=== PATIENT | male | born 1995 | race African-American/Black ===

== ENCOUNTER 2019-05-16 08:48 | Inpatient (IN) | payer MEDICAID, SELFPAY ==
[~2019-05-16] VITALS: Ht 170.2 cm; Wt 68.9 kg
[2019-05-16 08:48] VITALS: BP 89/60
[~2019-05-16 08:48] MED LIST: A-HYDROCORT100 MG IV
[2019-05-16] MEDS ORDERED: Capsaicin 0.075% Cream TOPIC ONE (09:30)
[2019-05-16 09:34] LABS: BASOPHILS % (AUTO) 0.8 % (0.0-2.0); EOSINOPHILS % (AUTO) 1.3 % (0.0-3.0); HEMATOCRIT 45.2 % (42.0-52.0); HEMOGLOBIN 15.2 G/DL (14.2-18.0); LYMPHOCYTES % (AUTO) 22.5 % (20.0-45.0); MEAN CORPUSCULAR VOLUME 86 FL (80-99); MONOCYTES % (AUTO) 8.2 % (1.0-10.0); NEUTROPHILS % (AUTO) 67.3 % (45.0-75.0); PLATELET COUNT 237 K/UL (150-450); RED BLOOD COUNT 5.28 M/UL (4.70-6.10); WHITE BLOOD COUNT 7.4 K/UL (4.8-10.8)
[2019-05-16 09:35] LABS: ANION GAP 13 mmol/L (5-15); BLOOD UREA NITROGEN 11 mg/dL (7-18); CALCIUM 9.4 MG/DL (8.5-10.1); CARBON DIOXIDE 22 MMOL/L (21-32); CHLORIDE 101 MMOL/L (98-107); CREATININE 0.7 MG/DL (0.55-1.30); SODIUM 136 MMOL/L (136-145)
--- NOTE | 2019-05-16 09:40 | NUR ---
ED Nurse Note: MIREILLE PT IN CUSTODY SEE TRIAGE NOTE. PT C/O VOMITTING BLOOD ERMD EVAL DONE BLOOD SENT PT MEDICATED UNABLE TO PROVIDE URINE AT THIS TIME ERMD AWARE. PT ON MONITOR .
[2019-05-16 09:45] VITALS: BP 107/56
[2019-05-16 09:50] LABS: ALANINE AMINOTRANSFERASE 12 U/L (12-78); ALBUMIN 4.3 G/DL (3.4-5.0); ALBUMIN/GLOBULIN RATIO 1.2 (1.0-2.7); ALKALINE PHOSPHATASE 52 U/L (46-116); ASPARTATE AMINO TRANSFERASE 28 U/L (15-37); BILIRUBIN,DIRECT 0.2 MG/DL (0.0-0.3); BILIRUBIN,TOTAL 1.4 MG/DL (0.2-1.0)
--- NOTE | 2019-05-16 10:00 | Emergency Room Report ---
History of Present Illness General Chief Complaint: Nausea, Vomiting, and Diarrhea Source: Patient Present Illness HPI This patient presents in custody after being in residential for 3 days. 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 He states he did not know that he could obtain this medication while incarcerated. He states that this morning he developed nausea and vomiting. He states that this is typical for him when he is not taking his hydrocortisone. He states he takes 500 mg 3 times a day. He did have an episode of diarrhea and states he has been fatigued. He denies fever or chills. He denies abdominal pain. He denies dysuria or hematuria. He denies headache or neck pain. He denies chest pain or shortness of breath. He denies cough or congestion. He has no other complaints. Allergies: Coded Allergies: No Known Allergies (Unverified , 05/16/19) Patient History Past Medical History: see triage record, other - Bentley's disease Social History: Reports: alcohol use, drug use; Denies: smoking Reviewed Nursing Documentation: PMH: Agreed; PSxH: Agreed Nursing Documentation-PMH Past Medical History: No History, Except For Hx Cardiac Problems: No - ADDISONS Review of Systems All Other Systems: negative except mentioned in HPI Physical Exam Vital Signs Date Time Temp Pulse Resp B/P (MAP) Pulse Ox O2 Delivery O2 Flow Rate FiO2 05/16/19 08:40 97.9 05/16/19 08:40 56 16 89/60 (70) 99 Room Air Sp02 EP Interpretation: reviewed, normal General Appearance: no apparent distress, alert, GCS 15, non-toxic Head: normocephalic, atraumatic Eyes: bilateral eye normal inspection, bilateral eye PERRL ENT: hearing grossly normal, normal pharynx, no angioedema, normal voice Neck: full range of motion, supple/symm/no masses Respiratory: chest non-tender, lungs clear, normal breath sounds, no respiratory distress, no retraction, no accessory muscle use, speaking full sentences Cardiovascular #1: no edema, bradycardia Gastrointestinal: normal bowel sounds, non tender, soft, non-distended, no guarding, no rebound Rectal: deferred Musculoskeletal: back normal, gait/station normal, normal range of motion, non- tender Neurologic: alert, oriented x3, responsive, motor strength/tone normal, sensory intact, speech normal Psychiatric: judgement/insight normal, memory normal, mood/affect normal, no suicidal/homicidal ideation Skin: no rash, normal color Medical Decision Making Diagnostic Impression: Primary Impression: Addisonian crisis Additional Impression: Terrence's disease ER Course This patient presents with an Bentley's crisis. He was hypotensive, bradycardic , hypoglycemic. He was also vomiting repeatedly despite Zofran. I did attempt to give food by mouth but the patient immediately vomited after trying to eat. He was unable to tolerate oral hydrocortisone. He was given IV hydrocortisone, aggressive IV fluids and admitted to the ICU stepdown for concern of rapid decompensation secondary to Terrence's crisis. This patient is critically ill. This patient required complex medical decision- making, aggressive intervention, extensive laboratory workup and monitoring. Critical care time: 40 minutes. Laboratory Tests Test 05/16/19 09:10 White Blood Count 7.4 K/UL (4.8-10.8) Red Blood Count 5.28 M/UL (4.70-6.10) Hemoglobin 15.2 G/DL (14.2-18.0) Hematocrit 45.2 % (42.0-52.0) Mean Corpuscular Volume 86 FL (80-99) Mean Corpuscular Hemoglobin 28.8 PG (27.0-31.0) Mean Corpuscular Hemoglobin Concent 33.6 G/DL (32.0-36.0) Red Cell Distribution Width 11.0 % (11.6-14.8) L Platelet Count 237 K/UL (150-450) Mean Platelet Volume 7.3 FL (6.5-10.1) Neutrophils (%) (Auto) 67.3 % (45.0-75.0) Lymphocytes (%) (Auto) 22.5 % (20.0-45.0) Monocytes (%) (Auto) 8.2 % (1.0-10.0) Eosinophils (%) (Auto) 1.3 % (0.0-3.0) Basophils (%) (Auto) 0.8 % (0.0-2.0) Sodium Level 136 MMOL/L (136-145) Potassium Level 4.0 MMOL/L (3.5-5.1) Chloride Level 101 MMOL/L (98-107) Carbon Dioxide Level 22 MMOL/L (21-32) Anion Gap 13 mmol/L (5-15) Blood Urea Nitrogen 11 mg/dL (7-18) Creatinine 0.7 MG/DL (0.55-1.30) Estimate Glomerular Filtration Rate > 60 mL/min (>60) Glucose Level 58 MG/DL (74-106) L Calcium Level 9.4 MG/DL (8.5-10.1) Total Bilirubin 1.4 MG/DL (0.2-1.0) H Direct Bilirubin 0.2 MG/DL (0.0-0.3) Aspartate Amino Transferase (AST) 28 U/L (15-37) Alanine Aminotransferase (ALT) 12 U/L (12-78) Alkaline Phosphatase 52 U/L (46-116) Total Protein 8.0 G/DL (6.4-8.2) Albumin 4.3 G/DL (3.4-5.0) Globulin 3.7 g/dL Albumin/Globulin Ratio 1.2 (1.0-2.7) Lipase 114 U/L (73-393) EKG Diagnostic Results Rate: bradycardiac Rhythm: other - S.bradycardia ST Segments: no acute changes Rhythm Strip Diag. Results EP Interpretation: yes Rate: 50's Rhythm: no PVC's, no ectopy, other - S.bradycardia Last Vital Signs Date Time Temp Pulse Resp B/P (MAP) Pulse Ox O2 Delivery O2 Flow Rate FiO2 05/16/19 09:45 97.9 60 16 107/56 100 Room Air Status: improved Disposition: ADMITTED INPATIENT Condition: Critical Giulia Rose DO May 16, 2019 10:00
--- NOTE | 2019-05-16 10:31 | NUR ---
ED Nurse Note: pt vomitted sandwich and juiceermd informed verbal order to hold off on cortel tab.
[2019-05-16] MEDS ORDERED: Hydrocortisone 100mg Inj IV ONE (10:45)
[2019-05-16 12:23] VITALS: BP 99/58
--- NOTE | 2019-05-16 12:39 | NUR ---
ED Nurse Note: mrsa vre swabs done belongings list done vss pt still unable to provide urine ermd aware.
[2019-05-16 13:30] VITALS: BP 122/54
--- NOTE | 2019-05-16 13:30 | NUR ---
NURSE NOTES: Pt brought up from ER via gurney, awake/alert, breathing easily on room air, denies SOB and denies pain at this time. Vital signs stable with SR @ 58 on monitor. Pt able to easily ambulate to the bed with steady gait, moving all extremities well. IV access left hand 20 ga, flushed with 10 ml NS and locked. Abdomen soft/supple/nontender no nausea/vom/diarr. Pt is in custody of [facility] Deputy Alexis Randall at bedside, pt right hand handcuffed to side rail of the bed good distal function in right hand. Urinal provided. Bed left in low position, side rails up x 2 and call light left near pt's hand,
[2019-05-16 16:00] VITALS: BP 125/45
--- NOTE | 2019-05-16 19:10 | NUR ---
HAND-OFF: Deputy Tinoco at bedside, pt breathing easily on room air, Vital signs stable. Pt has no complaints. Report given to Gregorio Brunson RN.
--- NOTE | 2019-05-16 19:11 | NUR ---
NURSE NOTES: Received pt from Cali COSBY. AAO X4 VSS with deputy at bedside. Pt shows no signs of acute distress.
[2019-05-16 21:00] VITALS: BP 108/53
[2019-05-16] MEDS ORDERED: Hydrocortisone 100mg Inj IV SCH ×2 (21:00)
[2019-05-16] MEDS: Hydrocortisone 100mg Inj IV SCH (21:11)
[2019-05-17] VITALS (8 sets, daily range): BP systolic 97–125; BP diastolic 41–61
--- NOTE | 2019-05-17 07:15 | NUR ---
HAND-OFF: Report given to Cali COSBY.
--- NOTE | 2019-05-17 07:58 | NUR ---
NURSE NOTES: Pt awake/alert, in bed eating breakfast, breathing easily on room air, denies SOB and denies pain at this time. Vital signs stable with SR @ 55 on monitor. IV access left forearm 20 ga, with 10 @ 125 ml/hr. Pt is in custody of [place] Oanh Christensen, Alanson Frances at bedside, pt right hand handcuffed to side rail of the bed good distal function in right hand. Urinal provided. Bed left in low position, side rails up x 2 and call light left near pt's hand,
[2019-05-17] MEDS: Hydrocortisone 100mg Inj IV SCH (09:01)
--- NOTE | 2019-05-17 15:30 | NUR ---
NURSE NOTES: [place] Randall on duty, Deputy Jaimes has left the floor
--- NOTE | 2019-05-17 17:00 | NUR ---
HAND-OFF: Transfer pt via wheelchair to [address] [place] [address] with belongings, chart and IV pole, Awake/alert breathing easily on room air, with [place] Randall at bedside. Report given to ALEA Leavitt.
--- NOTE | 2019-05-17 17:20 | NUR ---
NURSE NOTES: Patient transferred into room 419 bed 1,patient is alert and oriented.IV left forearm intact , will resume IV fluids as ordered.Patient accompany by [place] Randall at bedside. Call light within reach.
--- NOTE | 2019-05-17 19:00 | History and Physical Report ---
DATE OF ADMISSION: 05/16/2019 REASON FOR ADMISSION: Hypotension. HISTORY OF PRESENT ILLNESS: This is a 24-year-old male, under arrest now for cardiac events, has a history of Bland's disease. He has been incarcerated for three days and has not had his hydrocortisone during that period. This morning, he developed nausea and vomiting and had an episode of diarrhea. He felt lightheaded, weak, and almost passed out. He notes when he was first diagnosed with Bland's, this was similar to his presentation. PAST MEDICAL HISTORY: Otherwise unremarkable. ALLERGIES: He has no allergies. MEDICATIONS: He takes no other medications other than hydrocortisone 5 mg t.i.d. SOCIAL HISTORY: He denies smoking, but does have a history of alcohol and substance abuse. FAMILY HISTORY: Noncontributory. REVIEW OF SYSTEMS: A 12-point review of systems was otherwise negative. PHYSICAL EXAMINATION: VITAL SIGNS: Afebrile, blood pressure 89/60, pulse 56, respirations 16, oxygen saturation on room air 99%. HEENT: Conjunctivae pink. Oropharynx clear. NECK: Supple. Jugular venous pressure normal. No bruits. LUNGS: Clear. CARDIAC: Regular. Normal S1, S2. No murmur. ABDOMEN: Soft and nontender. EXTREMITIES: No edema. There is no tremor. NEUROLOGIC: Nonfocal. LABORATORY DATA: Reviewed. EKG with sinus bradycardia and no acute changes. IMPRESSION: 1. Bland's crisis. 2. History of Bland's disease. 3. Shock. 4. Hypovolemia. 5. Sinus bradycardia likely due to increased vagal tone. PLAN: 1. Stress-dose steroids. 2. IV fluid hydration. 3. Cardiac monitoring. 4. Antiemetics. Remy Donahue M.D. DR: BIBI JOB#: [id number] CC:
--- NOTE | 2019-05-17 19:01 | NUR ---
NURSE NOTES: Patient watching Television,no complaints at this time,[place] Randall at bedside.
--- NOTE | 2019-05-17 19:43 | NUR ---
NURSE NOTES: Pt handcuffed to bed with deputy at the bedside, no signs of distress or c/o pain at the moment, head of bed elevated, will continue to monitor.
--- NOTE | 2019-05-17 19:46 | NUR ---
HAND-OFF: Report given to Sandy COSBY.
--- NOTE | 2019-05-17 19:48 | NUR ---
NURSE NOTES: Pt received handcuffed to bed asking to take a shower, the officer at bedside was not in agreement, I offered the patient towels and warm water in a basin and he refused.
--- NOTE | 2019-05-17 20:15 | Progress Note ---
DATE: 05/17/2019 INTERNAL MEDICINE PROGRESS NOTE SUBJECTIVE: No new vomiting. Tolerating diet. Blood pressure stabilized. He is on stress-dose steroids. OBJECTIVE: VITAL SIGNS: Blood pressure 106/60, heart rate 61, respiratory rate 16, afebrile. LUNGS: Clear. CARDIAC: Regular. No murmur. ABDOMEN: Soft, nontender. EXTREMITIES: No edema. IMPRESSION: 1. [place]'s crisis, resolved. 2. [place] disease with crisis precipitated off steroids. 3. Hypovolemia, resolved. 4. Asymptomatic sinus bradycardia, likely due to increased vagal tone. PLAN: 1. Taper IV fluids. 2. Transition from IV to oral maintenance-dose steroids. 3. Discharge planning. Remy Donahue M.D. DR: Mai JOB#: [id number] CC:
[2019-05-18] VITALS: BP 103/44
--- NOTE | 2019-05-18 02:59 | NUR ---
HAND-OFF: Report given to AELA Mayorga
[2019-05-18 03:45] LABS: APPEARANCE,URINE CLEAR; BILIRUBIN, URINE 1+ (NEGATIVE); GLUCOSE, URINE (UA) NEGATIVE (NEGATIVE); KETONES,URINE NEGATIVE (NEGATIVE); LEUKOCYTE ESTERASE ,URINE NEGATIVE (NEGATIVE); NITRITE,URINE NEGATIVE (NEGATIVE); PH,URINE 8 (4.5-8.0); PROTEIN,URINE NEGATIVE (NEGATIVE); UROBILINOGEN,URINE 12 MG/DL (0.0-1.0)
[2019-05-18 03:46] LABS: COLOR,URINE YELLOW
[2019-05-18 04:00] VITALS: BP 119/51
--- NOTE | 2019-05-18 07:23 | NUR ---
HAND-OFF: Report given to Dagmar COSBY.
--- NOTE | 2019-05-18 07:29 | NUR ---
NURSE NOTES: Unable to leave message to Dr. Donahue's voicemail. When selected #1 for emergency call, it forwarded to Dr. Bonilla's voicemail. Dr. Bonilla was in the unit earlier and stated that he is not covering Dr. Donahue today. Left message to Dr. Donahue's office number instead re: +[facility] transfer inquiry. ALEA Leavitt, AM nurse made aware and will follow up.
[2019-05-18 08:00] VITALS: BP 107/66
--- NOTE | 2019-05-18 08:00 | NUR ---
NURSE NOTES: Patient is awake and alert,respirations unlabored.IV fluids infusing as ordered Landfill Grader at patient bedside.Call light within reach.
--- NOTE | 2019-05-18 10:00 | NUR ---
NURSE NOTES: RN got the endorsement form bakery supervisor to let CM know to call [facility] alert center [phone] for possible transfer and transfer request. RN tried to contact but no one is available. RN called [facility] alert center and spoke with Gregorio and received 3 pages of transfer request form. Per [facility] [place] the form can be filled out either nurses or doctors. RN paged Dr. Donahue to ask the reason why patient needs to be transferred and needs. Awaiting for return call and RN made Debuty aware that we are working on transfer. Will follow up.
[2019-05-18 12:00] VITALS: BP 109/61
--- NOTE | 2019-05-18 13:00 | NUR ---
NURSE NOTES: Dr. Donahue was paged to clarify the discharge order. Patient supposed to be in custody of loan operations specialist not [employer] and needs to be medically clear ("Ok to book" per deputy). Awaiting for return call.
[2019-05-18] MEDS ORDERED: CORTEF5 MG PO (13:18)
--- NOTE | 2019-05-18 13:42 | NUR ---
NURSE NOTES: community health nurse supervisor spoke to Dr. Bonilla who is covering for Dr. Donahue about discharge. Dr. Bonilla cleared the patient and discharge medication were put by retail warehouse associate. Victor said he can take the patient in his car once patient is clear by doctor to go back. Assigned nurse is aware of discharge.
[2019-05-18] MEDS ORDERED: ZOFRAN4 M3 ORAL (13:45)
--- NOTE | 2019-05-18 15:26 | NUR ---
NURSE NOTES: Patient was seen by Dr. Donahue and cleared the patient.
--- NOTE | 2019-05-18 15:33 | NUR ---
NURSE NOTES: Patient discharge to the custody of the [facility] department. Gisselle Graham will take patient back to the facility.Patient personal belongings in the care of Deputy sheriff Graham.IV was removed,ID hospital band removed.DR Donahue was here to see patient prior to discharge.Discharge instructions were given to patient.
--- NOTE | 2019-05-19 12:14 | Discharge Summary ---
Discharge Summary Discharge Summary _ DATE OF ADMISSION: 05/16/2019 DATE OF DISCHARGE: 05/18/2019 DISCHARGED BY: REASON FOR ADMISSION: 24 years old male with history of Chittenden's disease, presented in custody after being in [facility] for 3 days. According to the patient, he was not taking his hydrocortisone for the past 3 days. He stated that he did not know , that he could obtain his medication while being incarcerated. In the morning he developed nausea and vomiting. Patient stated that this is typical for him , when he does not take his hydrocortisone. Patient usually takes 5 mg 3 times a day. Patient also reported episode of diarrhea and fatigue. No fever or chills. No abdominal pain. No dysuria or hematuria. No headache or neck pain. No chest pain or shortness of breath. No cough, no congestion. Upon evaluation patient was bradycardic with heart rate 56 and hypotensive with blood pressure 89/60. EKG revealed sinus bradycardia. Laboratory work-up revealed no leukocytosis, stable hemoglobin and hematocrit. Stable electrolytes. Glucose 58. Urinalysis revealed no evidence of UTI. Urine toxicology screen was positive for marijuana. Patient demonstrated persistent vomiting and was unable to take oral steroids. Patient with bradycardia, hypotension and hypoglycemia, persistent vomiting, admitted for Chittenden crisis. In emergency department patient received IV hydrocortisone , started on aggressive IV fluid and admitted to monitored floor. HOSPITAL COURSE: Patient admitted to the monitored floor. Patient started on stress dose steroids. Patient continued on aggressive hydration with IV fluids. Antiemetic provided as needed. Patient remained in sinus rhythm , no block, no skipped beats. As patient was able to tolerate diet, IV fluids were tapered. IV steroids were changed to oral maintenance dose. Heart rate stabilized in the in 60s , prior to discharge. Patient clinically stabilized and was ready for discharge to the custody of the [facility] department. FINAL DIAGNOSES: Chittenden's crisis Chittenden's disease Shock Hypovolemia Sinus bradycardia likely due to increased vagal component DISCHARGE MEDICATIONS: See Medication Reconciliation list. DISCHARGE INSTRUCTIONS: Patient was discharged to the custody of the [facility] department. I have been assigned to dictate discharge summary for this account. I was not involved in the patient's management. Denise Mcclendon NP May 19, 2019 12:14
--- NOTE | 2019-05-20 14:49 | NUR ---
*-* INSURANCE *-* ALL CLINICALS HAVE BEEN FAXED TO: DEMI "JUSTINE" FRANCISM: KATHERYN P: [phone] F: [phone]
== END 2019-05-18 15:35 | DRG 424 ==
LOC: EDBD 08:48 → EMR 10:37 → EDBD 11:20 → 2W 11:20 → EDBEDREQ 11:42 → 2W 13:06 → 4E 05-17 17:15
DX: E27.2 Addisonian crisis (principal); E86.1 Hypovolemia; R00.1 Bradycardia, unspecified; R57.9 Shock, unspecified; Z91.14 Patient's other noncompliance with medication regimen
CPT/HCPCS: 36415; 80053; 80307; 81003; 82248; 82962; 83690; 85025; 86850; 86900; 86901; 87081; 96361; 96374; 96375; 99291; J2405